=== PATIENT | female | born 2000 | race Hispanic/Latino ===

== ENCOUNTER 2024-07-25 13:10 | Emergency (ER) | payer BC, SELFPAY ==
[2024-07-25 15:40] LABS: Absolute Basophils 0.1 K/uL (0-0.5); Absolute Eosinophils 0.1 K/uL (0-0.5); Absolute Lymphocytes (CBC) 2.2 K/uL (0.7-4.9); Absolute Monocytes 0.6 K/uL (0.1-1.3); Absolute Neutrophil 7.6 K/uL (1.8-8.0); Basophils % 0.5 % (0-1.3); Eosinophils % 0.6 % (0-4.4); Hematocrit 39.4 % (36.0-45.0); Hemoglobin 13.2 g/dL (12.0-15.0); Lymphocytes % 21.2 % (15.3-44.8); MCH 28.5 pg (27.0-35.0); MCHC 33.6 g/dL (32.0-36.0); MCV 84.8 fL (80-100); MPV 8.8 fL (7.6-11.3); Monocytes % 6.1 % (3.3-12.3); Neutrophils % 71.6 % (41.7-73.7); Platelets 287 thou/uL (152-406); RBC Red Blood Cell Count 4.65 M/uL (3.86-4.86); Red Cell Distribution Width 12.9 % (12.1-15.2)
--- NOTE | 2024-07-25 15:48 | RAD REPORT ---
EXAMINATION: US FIRST TRIMESTER TRANSVAGINAL WITH DOPPLER CLINICAL INDICATION: with pelvic pain TECHNIQUE: Real-time obstetrical ultrasonography of the maternal pelvis and first trimester was performed transvaginally. Color and spectral Doppler evaluation of the ovaries was performed. COMPARISON: No prior exam. FINDINGS: The uterus measures 7 x 4 x 4 cm Endometrial stripe 1 cm. Gestational sac is. Right ovary normal in size and echotexture Left ovary normal in size and echotexture Right and left adnexa unremarkable No significant free fluid IMPRESSION: Non visualization of a gestational sac within the endometrium. This could be a viable intrauterine pr egnancy in which the gestational sac not seen secondary to the early gestation. Other considerations include an and even ectopic . This should be correlated clinically and with serial beta-hCG levels. Follow-up endovaginal sonogram in one week recommended for reevaluation
[2024-07-25 15:58] LABS: Anion Gap 9.6 mEq/L (5.0-15.0); Potassium 3.6 mEq/L (3.5-5.1)
[2024-07-25 16:08] LABS: Sqamous Epithelial 20-50 /HPF (None Seen); Urine Bacteria None Seen /HPF (<20); Urine Crystals Unidentified Few /HPF (None Seen); Urine Culture Reflex Order NOT NEEDED; Urine Micro Reflex YN NO BILL MICROSCOPIC; Urine Mucus Slight /HPF (None Seen); Urine RBC >50 /HPF (None Seen); Urine WBC >50 /HPF (<5); Urine WBC Clump Many /HPF (None Seen); Urine Yeast (Budding) Many /HPF (None Seen)
--- NOTE | 2024-07-25 16:23 | EDPHYS ---
Physician Documentation [facility] Name: Makenna Tan Age: 23 yrs Sex: Female : 2000 Arrival Date: 07/25/2024 Time: 13:10 Bed 19 Private MD: ED Physician Juanjo Fitch HPI: 07/25 14:56 This 23 yrs old Female presents to ER via Ambulatory with complaints of bo1 possible miscarriage. 14:56 Pt started vaginal bleeding (spotting) this AM - 7am suddenly. Now with cramps. Hx of bo1 with LMP in Mid Jun. Pos preg test late Jun. Now est to be 5-6 weeks. . Onset: The symptoms/episode began/occurred suddenly, this morning. Severity of symptoms: At their worst the symptoms were mild. No known cause or trauma. 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 - Infectious Disease History:: Denies. - Social history:: Smoking status: Patient denies any tobacco usage or history of. ROS: 16:17 Constitutional: Negative for fever, chills, and weight loss bo1 16:17 Constitutional: Negative for fever, 16:17 Cardiovascular: Negative for chest pain, 16:17 Respiratory: Negative for shortness of breath, 16:17 Abdomen/GI: Positive for Mild pelvic cramps, 16:17 : Positive for vaginal bleeding, Spotting, no clots etc, 16:17 Skin: Negative for rash, 16:17 All other systems are negative, Exam: 16:18 Constitutional: This is a well developed, well nourished patient who is awake, alert, bo1 and in no acute distress. 16:18 Constitutional: The patient appears in no acute distress, alert, awake, comfortable, 16:18 Abdomen/GI: Inspection: abdomen appears normal, Palpation: abdomen is soft and non-tender, 16:18 Back: CVA tenderness, is absent, 16:18 Skin: Warm and dry. Vital Signs: 14:14 BP 144 / 95; Pulse 89; Resp 16; Temp 98; Pulse Ox 100% ; Weight 81.65 kg; Height 5 ft. hb 7 in. ; Pain 2/10; 15:00 BP 129 / 82; Pulse 83; Resp 15; Pulse Ox 100% ; me1 16:00 BP 125 / 81; Pulse 82; Resp 14; Temp 98.4; Pulse Ox 100% ; me1 14:14 Body Mass Index 28.19 (81.65 kg, 170.18 cm) hb 14:14 Pain Scale: Adult hb MDM: 14:53 Medical Screening Exam initiated bo1 16:19 Differential Diagnosis Missed AB vs early preg vs ectopic. Data reviewed: vital signs, bo1 lab test result(s), radiologic studies, ultrasound. ED course: Pt agrees to return for a repeat beta HCG and ultrasound if indicated. 07/25 14:54 Order name: Abo/rh Typing; Complete Time: 16:09 bo1 07/25 14:54 Order name: Basic Metabolic Panel; Complete Time: 16:09 bo1 07/25 14:54 Order name: CBC with Diff; Complete Time: 15:53 bo1 07/25 14:54 Order name: Quantitative Hcg; Complete Time: 16:09 bo1 07/25 16:01 Order name: Urine Microscopic Only; Complete Time: 16:09 EDMS 07/25 14:54 Order name: US Transvaginal Ob; Complete Time: 15:53 bo1 07/25 14:54 Order name: IV Saline Lock; Complete Time: 16:22 bo1 07/25 14:54 Order name: Labs collected and sent; Complete Time: 16:22 bo1 07/25 14:54 Order name: NPO; Complete Time: 16:22 bo1 Administered Medications: No medications were administered Disposition Summary: 07/25/24 16:22 Discharge Ordered Notes: Location: Home bo1 Problem: new bo1 Symptoms: are unchanged bo1 Condition: Stable bo1 Diagnosis - Less than 8 weeks gestation of bo1 Followup: bo1 - With: Emergency Department - When: 5 - 6 days - Reason: Recheck today's complaints, Continuance of care Discharge Instructions: - Discharge Summary Sheet bo1 - Vaginal Bleeding During , First Trimester bo1 Forms: - Medication Reconciliation Form bo1 - Antibiotic Education bo1 - Prescription Opioid Use bo1 - Patient Portal Instructions bo1 - Leadership Thank You Letter bo1 Signatures: Dispatcher [employer] EDMS Ca Monaco, RN RN Oei, MD JAD Geiger bo1 Corrections: (The following items were deleted from the chart) 14: 14:55 Transvaginal Ob+US.RAD.BRZ ordered. EDMS EDMS 16:01 14:55 Urinalysis+U.LAB.BRZ ordered. EDMS EDMS
--- NOTE | 2024-07-25 16:23 | ER ---
Nurse's Notes [facility] Name: Makenna Tan Age: 23 yrs Sex: Female : 2000 Arrival Date: 07/25/2024 Time: 13:10 Bed 19 Private MD: Diagnosis: Less than 8 weeks gestation of Presentation: 07/25 14:14 Chief complaint: Vaginal bleeding and cramping that started today, had positive home hb test last week. LMP 06/17. Coronavirus screen: At this time, the client does not indicate any symptoms associated with coronavirus-19. Ebola Screen: No symptoms or risks identified at this time. Initial Sepsis Screen: Does the patient meet any 2 criteria? No. Patient's initial sepsis screen is negative. Does the patient have a suspected source of infection? No. Patient's initial sepsis screen is negative. Risk Assessment: Do you want to hurt yourself or someone else? Patient reports no desire to harm self or others. Onset of symptoms was July 25, 2024. 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 - Infectious Disease History:: Denies. - Social history:: Smoking status: Patient denies any tobacco usage or history of. Screenin:23 [facility] ED Fall Risk Assessment (Adult) History of falling in the last 3 months, me1 including since admission No falls in past 3 months (0 pts) Confusion or Disorientation No (0 pts) Intoxicated or Sedated No (0 pts) Impaired Gait No (0 pts) Mobility Assist Device Used No (0 pt) Altered Elimination No (0 pt) Score/Fall Risk Level 0 - 2 = Low Risk Maintained a safe environment, Provided non-skid footwear, Hourly rounding (assess needs \T\ fall precautionary measures) done. Abuse screen: Denies threats or abuse. Nutritional screening: No deficits noted. Tuberculosis screening: No symptoms or risk factors identified. Assessment: 14:23 General: Appears comfortable, well groomed, well developed, well nourished, Behavior is me1 calm, cooperative, appropriate for age, Reports Vaginal bleeding and cramping that started today, had positive home test last week. LMP 06/17. Pain: Complains of pain in suprapubic area Pain does not radiate. Pain currently is 3 out of 10 on a pain scale. Quality of pain is described as crampy, Pain began gradually, Is continuous. Neuro: Level of Consciousness is awake, alert, obeys commands, Oriented to person, place, time, situation, Appropriate for age. Cardiovascular: Patient's skin is warm and dry. Respiratory: Airway is patent Trachea midline Respiratory effort is even, unlabored, Respiratory pattern is regular, symmetrical. GI: No signs and/or symptoms were reported involving the gastrointestinal system. : Reports vaginal bleeding that is moderate flow. EENT: No signs and/or symptoms were reported regarding the EENT system. Derm: Skin is intact, is healthy with good turgor, Skin is pink, warm \T\ dry. Musculoskeletal: No signs and/or symptoms reported regarding the musculoskeletal system. Vital Signs: 14:14 BP 144 / 95; Pulse 89; Resp 16; Temp 98; Pulse Ox 100% ; Weight 81.65 kg; Height 5 ft. hb 7 in. ; Pain 2/10; 15:00 BP 129 / 82; Pulse 83; Resp 15; Pulse Ox 100% ; me1 16:00 BP 125 / 81; Pulse 82; Resp 14; Temp 98.4; Pulse Ox 100% ; me1 14:14 Body Mass Index 28.19 (81.65 kg, 170.18 cm) hb 14:14 Pain Scale: Adult hb ED Course: 13:12 Patient arrived in ED. al6 13:14 Juanjo Fitch MD is Attending Physician. bo1 14:15 Triage completed. hb 14:15 Arm band placed on. hb 14:22 Priya Fulton, EMIGDIO is Primary Nurse. me1 14:23 Patient has correct armband on for positive identification. Bed in low position. Call me1 light in reach. Side rails up X2. Provided Education on: POC. Verbalized understanding.. Client placed on continuous cardiac and pulse oximetry monitoring. NIBP monitoring applied. Pulse ox on. NIBP on. 14:23 No provider procedures requiring assistance completed. me1 15:14 US Transvaginal Ob In Process Unspecified. EDMS 16:40 IV discontinued, intact, bleeding controlled, No redness/swelling at site. Pressure me1 dressing applied. Administered Medications: No medications were administered Medication: 14:23 VIS not applicable for this client. me1 Outcome: 16:22 Discharge ordered by . bo1 16:40 Discharged to home ambulatory, with significant other, me1 16:40 Condition: stable 16:40 Discharge instructions given to patient, significant other, Instructed on discharge instructions, follow up and referral plans. Demonstrated understanding of instructions, follow-up care, 16:41 Patient left the ED. me1 Signatures: Dispatcher [employer] EDCa Butcher RN RN Priya Fulton RN RN me1 Juanjo Fitch MD MD bo1 Fatemeh Vergara6 Corrections: (The following items were deleted from the chart) :23 14:14 Chief complaint: Vaginal bleeding and cramping that started today, had positive me1 home test last week. LMP 06/17. hb
[2024-07-25 16:45] VITALS: O2SAT 100
[2024-07-25 16:48] VITALS: BP 125/81; TEMP 98.4
== END 2024-07-25 16:41 | disposition home or self-care (01) ==
LOC: ER 13:10
DX: O20.9 Hemorrhage in early pregnancy, unspecified (principal); Z3A.01 Less than 8 weeks gestation of pregnancy
CPT/HCPCS: 36415; 76817; 80048; 81015; 84702; 85025; 86900; 86901; 99283

== ENCOUNTER 2025-03-16 14:43 | Emergency (ER) | payer OTHER ==
[2025-03-16 15:19] LABS: Absolute Lymphocytes (CBC) 2.0 K/uL (0.7-4.9); Hematocrit 42.0 % (36.0-45.0); Hemoglobin 14.4 g/dL (12.0-15.0); MCH 28.9 pg (27.0-35.0); MCHC 34.3 g/dL (32.0-36.0); MCV 84.2 fL (80-100); MPV 8.9 fL (7.6-11.3); Nucleated RBC Absolute Count 0.0 (0-0); Nucleated Red Blood Cells % 0.1 % (0-0); RBC Red Blood Cell Count 4.99 M/uL (3.86-4.86); White Blood Count 8.60 thou/uL (4.3-10.9)
[2025-03-16 15:34] LABS: ALT/SGPT 18 U/L (13-56); Albumin 4.5 g/dL (3.4-5.0); Albumin/Globulin Ratio 1.2 (1.1-1.8); Alkaline Phosphatase 73 U/L (45-117); Anion Gap 8.5 mEq/L (5.0-15.0); BUN Blood Urea Nitrogen 6 mg/dL (7-18); Bilirubin Indirect, Calculated 0.4 mg/dL (0.2-0.8); Globulin 3.7 g/dL (2.3-3.5); Glucose Level 97 mg/dL (74-106); Magnesium 2.3 mg/dL (1.6-2.4); Potassium 3.5 mEq/L (3.5-5.1); Troponin High Sensitivity 3.5 pg/mL (<58.9)
[2025-03-16 15:36] LABS: AST/SGOT < 10 U/L (15-37)
--- NOTE | 2025-03-16 16:07 | RAD REPORT ---
EXAMINATION: ONE VIEW CHEST XR CLINICAL INDICATION: CHEST PAIN TECHNIQUE: Frontal chest projection is submitted. Examination is limited by patient positioning and t echnique. COMPARISON: No prior exam. FINDINGS: The lungs are well inflated and clear. The heart is normal in size. No displaced fractures identified . IMPRESSION: No acute intrathoracic abnormalities.
--- NOTE | 2025-03-16 16:13 | EDPHYS ---
Physician Documentation [facility] Name: Frida Mensah Age: 24 yrs Sex: Female : 2000 Arrival Date: 03/16/2025 Time: 14:43 Bed 17 Private MD: ED Physician Reza Fraser HPI: 03/16 15:49 This 24 yrs old Female presents to ER via Ambulatory with complaints of ms3 Abnormal EKG. 15:49 24-year-old female with no past medical history presents to the emergency department ms3 for chest tightness and nausea that been ongoing for 1 week. Patient was at urgent care prior to arrival in the emergency department where she was given a GI cocktail and began to feel better. Patient was informed her EKG was abnormal showing a right bundle branch block. Patient states her pressure and the chest is rated 4/10. Patient states in the beginning of the week it was an 8/10 and has improved. Patient notes the pain is typically worse in the morning. Patient denies shortness of breath, lightheadedness, dizziness, palpitations.. 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 - Infectious Disease History:: Denies. - Social history:: Smoking status: Reported history of juuling and/or vaping. ROS: 15:49 Constitutional: Negative for fever, and chills. ms3 15:49 Respiratory: Negative for shortness of breath, cough, wheezing, and pleuritic chest pain, Abdomen/GI: Negative for abdominal pain, nausea, vomiting, diarrhea, and constipation, MS/Extremity: Negative for injury and deformity, Skin: Negative for injury, rash, and discoloration, 15:49 Cardiovascular: Positive for chest pain, Exam: 15:49 Constitutional: This is a well developed, well nourished patient who is awake, alert, ms3 and in no acute distress. Head/Face: Normocephalic, atraumatic. Cardiovascular: Regular rate and rhythm with a normal S1 and S2. No gallops, murmurs, or rubs. Normal PMI, no JVD. No pulse deficits. Respiratory: Lungs have equal breath sounds bilaterally, clear to auscultation and percussion. No rales, rhonchi or wheezes noted. No increased work of breathing, no retractions or nasal flaring. Abdomen/GI: Soft, non-tender, with normal bowel sounds. No distension or tympany. No guarding or rebound. No evidence of tenderness throughout. Skin: Warm, dry with normal turgor. Normal color with no rashes, no lesions, and no evidence of cellulitis. 15:49 ECG was reviewed by the Attending Physician. Vital Signs: 14:50 BP 101 / 86; Pulse 89; Resp 18 S; Temp 98(TE); Pulse Ox 100% on R/A; Pain 4/10; aa5 15:47 BP 119 / 84; Pulse 81; Resp 20; Pulse Ox 100% on R/A; kj2 16:28 BP 126 / 83; Pulse 80; Resp 18; Temp 98.2; Pulse Ox 100% on R/A; kj2 14:50 Pain Scale: Adult aa5 MDM: 14:49 Medical Screening Exam initiated ms3 15:49 Differential diagnosis: abnormal EKG, acute myocardial infarction, acute pericarditis, ms3 anxiety, coronary artery disease chest wall pain. HEART Score: History: Slightly Suspicious (0), ECG: Normal (0), Age: < or = 45 years (0), Risk Factors: No Risk Factors Known (0), Troponin: < or = 1 x Normal Limit (0), Total Score = 0. Scoring Tools PERC Rule for PE Age > /= 50 No (0) HR > /= 100 No (0) O2 Sat Room Air < 95% No (0) Unilateral leg swelling No (0) Hemoptysis No (0) Recent surgery or trauma </= 4 weeks ago, requiring treatment with General Anesthesia No (0) Prior PE or DVT No (0) Hormone use No (0). 19:37 Data reviewed: vital signs, nurses notes, lab test result(s), EKG, radiologic studies, ms3 and as a result, I will discharge patient. Independent interpretation of the following test(s) in the Emergency Department EKG: See my EKG interpretation above X-Ray: My interpretation is Chest x-ray images reviewed by me do not reveal pneumonia or pneumothorax. Counseling: I had a detailed discussion with the patient and/or guardian regarding the historical points, exam findings, and any diagnostic results supporting the discharge/admit diagnosis, lab results, radiology results, the need for outpatient follow up, to return to the emergency department if symptoms worsen or persist or if there are any questions or concerns that arise at home. Special discussion: I discussed with the patient/guardian in detail that at this point there is no indication for admission to the hospital. It is understood, however, that if the symptoms persist or worsen the patient needs to return immediately for re-evaluation. ED course: Discussed EKG, labs, chest x-ray findings with patient. Patient to follow-up with primary care physician in 2 to 3 days. Patient understands and agrees with plan. All questions were answered. Return precautions discussed include worsening symptoms, or any other concerns. On reevaluation patient is alert and oriented x 4, no apparent distress, nontoxic-appearing, speaking full sentences. 03/16 14:55 Order name: Basic Metabolic Panel; Complete Time: 15:41 ms3 03/16 14:55 Order name: CBC with Diff; Complete Time: 15:34 ms3 03/16 14:55 Order name: LFT's; Complete Time: 15:41 ms3 03/16 14:55 Order name: Magnesium; Complete Time: 15:41 ms3 03/16 14:55 Order name: Troponin HS; Complete Time: 15:41 ms3 03/16 14:55 Order name: XRAY Chest (1 view); Complete Time: 16:09 ms3 03/16 14:55 Order name: EKG; Complete Time: 14:56 ms3 03/16 14:55 Order name: Cardiac monitoring; Complete Time: 15:50 ms3 03/16 14:55 Order name: EKG - Nurse/Tech; Complete Time: 15:50 ms3 03/16 14:55 Order name: IV Saline Lock; Complete Time: 15:50 ms3 03/16 14:55 Order name: Labs collected and sent; Complete Time: 15:50 ms3 03/16 14:55 Order name: O2 Per Protocol; Complete Time: 15:50 ms3 03/16 14:55 Order name: O2 Sat Monitoring; Complete Time: 15:50 ms3 EC:49 Rate is 75 beats/min. Rhythm is regular. QRS [place] is Normal. [place] interval is normal. QRS ms3 interval is prolonged. Clinical impression: Normal ECG and with RBBB. Interpreted by me. Reviewed by me. Administered Medications: No medications were administered Disposition Summary: 03/16/25 16:12 Discharge Ordered Notes: Location: Home ms3 Condition: Stable ms3 Diagnosis - Chest pain, unspecified ms3 - Unspecified right bundle-branch block ms3 Followup: ms3 - With: Jose Maldonado DO - When: 2 - 3 days - Reason: Recheck today's complaints Discharge Instructions: - Discharge Summary Sheet ms3 - Nonspecific Chest Pain, Adult ms3 - Right Bundle Branch Block ms3 Forms: - Medication Reconciliation Form ms3 - Antibiotic Education ms3 - Prescription Opioid Use ms3 - Patient Portal Instructions ms3 - Leadership Thank You Letter ms3 Signatures: Dispatcher [employer] Erika Schwartz RN RN aa5 Reza Fraser DO DO ms3
--- NOTE | 2025-03-16 16:13 | ER ---
Nurse's Notes [facility] Name: Frida Mensah Age: 24 yrs Sex: Female : 2000 Arrival Date: 03/16/2025 Time: 14:43 Bed 17 Private MD: Diagnosis: Chest pain, unspecified;Unspecified right bundle-branch block Presentation: 03/16 14:50 Chief complaint: Patient states: chest tightness and nausea x 1 week ago. Pt reports aa5 was seen at urgent care and sent here for abnormal EKG, showing right bundle branch block. Pt reports she was given GI cocktail at urgent care and symptoms have improved. Coronavirus screen: At this time, the client does not indicate any symptoms associated with coronavirus-19. Ebola Screen: Patient denies travel to an Ebola-affected area in the 21 days before illness onset. Initial Sepsis Screen: Does the patient meet any 2 criteria? No. Patient's initial sepsis screen is negative. Does the patient have a suspected source of infection? No. Patient's initial sepsis screen is negative. Risk Assessment: Do you want to hurt yourself or someone else? Patient reports no desire to harm self or others. Onset of symptoms was March 2025. 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 - Infectious Disease History:: Denies. - Social history:: Smoking status: Reported history of juuling and/or vaping. Screenin:00 [facility] ED Fall Risk Assessment (Adult) History of falling in the last 3 months, kj2 including since admission No falls in past 3 months (0 pts) Confusion or Disorientation No (0 pts) Intoxicated or Sedated No (0 pts) Impaired Gait No (0 pts) Mobility Assist Device Used No (0 pt) Altered Elimination No (0 pt) Score/Fall Risk Level 0 - 2 = Low Risk Maintained a safe environment, Hourly rounding (assess needs \T\ fall precautionary measures) done. Abuse screen: Denies threats or abuse. Denies injuries from another. Nutritional screening: No deficits noted. Tuberculosis screening: No symptoms or risk factors identified. Assessment: 15:00 General: Appears in no apparent distress. Behavior is cooperative. Pain: Denies pain. kj2 Neuro: Level of Consciousness is awake, alert, obeys commands, Oriented to person, place, time, situation. Cardiovascular: Patient's skin is warm and dry. Respiratory: Airway is patent Respiratory effort is even, unlabored. GI: No signs and/or symptoms were reported involving the gastrointestinal system. : No signs and/or symptoms were reported regarding the genitourinary system. 15:47 Reassessment: Patient appears in no apparent distress at this time. Patient and/or kj2 family updated on plan of care and expected duration. Pain level reassessed. Patient is alert, oriented x 3, equal unlabored respirations, skin warm/dry/pink. Vital Signs: 14:50 BP 101 / 86; Pulse 89; Resp 18 S; Temp 98(TE); Pulse Ox 100% on R/A; Pain 4/10; aa5 15:47 BP 119 / 84; Pulse 81; Resp 20; Pulse Ox 100% on R/A; kj2 16:28 BP 126 / 83; Pulse 80; Resp 18; Temp 98.2; Pulse Ox 100% on R/A; kj2 14:50 Pain Scale: Adult aa5 ED Course: 14:45 Patient arrived in ED. mr 14:46 Sunny Zavala PA is PHCP. cp 14:46 Reza Fraser DO is Attending Physician. cp 14:50 Arm band placed on. aa5 14:51 Triage completed. aa5 15:00 Patient has correct armband on for positive identification. Bed in low position. Call kj2 light in reach. Adult w/ patient. Provided Education on: call light. 15:07 Inserted saline lock: 20 gauge in right antecubital area, using aseptic technique. sa1 Blood collected. Flushed with 10 mL NS. 15:07 Initial lab(s) drawn, by me, sent to lab. sa1 15:15 Koki Herron, RN is Primary Nurse. kj2 15:56 XRAY Chest (1 view) In Process Unspecified. EDMS 16:11 Jose Maldonado DO is Referral Physician. ms3 16:24 No provider procedures requiring assistance completed. IV discontinued, intact, kj2 bleeding controlled, No redness/swelling at site. Pressure dressing applied. Administered Medications: No medications were administered Medication: 15:49 VIS not applicable for this client. kj2 Outcome: 16:12 Discharge ordered by . ms3 16:25 Discharged to home ambulatory, with friend, kj2 16:25 Condition: stable 16:25 Discharge instructions given to patient, Instructed on discharge instructions, follow up and referral plans. Demonstrated understanding of instructions, follow-up care, 16:38 Patient left the ED. kj2 Signatures: Dispatcher [employer] EDWI Kindra Abdi, Reg Reg mr FatimaErika, RN RN aa5 Sunny Zavala PA PA Reza Alvarez, DO ms3 Sultan Dorota sa1 Koki Herron, RN RN kj2 Corrections: (The following items were deleted from the chart) 14:52 14:50 Pain 4/10, Adult; aa5 aa5
[2025-03-16 18:35] VITALS: O2SAT 100
[2025-03-16 18:47] VITALS: BP 126/83; TEMP 98.2
== END 2025-03-16 16:38 | disposition home or self-care (01) ==
LOC: ER 14:43
DX: I45.10 Unspecified right bundle-branch block (principal)
CPT/HCPCS: 36415; 71045; 80048; 80076; 83735; 84484; 85025; 93005; 99284

== ENCOUNTER 2025-03-18 22:00 | Emergency (ER) | payer OTHER ==
[2025-03-18 22:59] LABS: Absolute Lymphocytes (CBC) 3.0 K/uL (0.7-4.9); Hematocrit 39.2 % (36.0-45.0); Hemoglobin 13.5 g/dL (12.0-15.0); MCH 28.6 pg (27.0-35.0); MCHC 34.4 g/dL (32.0-36.0); MCV 83.2 fL (80-100); MPV 9.1 fL (7.6-11.3); Nucleated RBC Absolute Count 0.0 (0-0); Nucleated Red Blood Cells % 0.0 % (0-0); RBC Red Blood Cell Count 4.71 M/uL (3.86-4.86); White Blood Count 10.60 thou/uL (4.3-10.9)
[2025-03-18 23:25] LABS: Anion Gap 8.6 mEq/L (5.0-15.0); BUN Blood Urea Nitrogen 7.0 mg/dL (7-18); Glucose Level 107.0 mg/dL (74-106); Magnesium 2.3 mg/dL (1.6-2.4); Potassium 3.6 mEq/L (3.5-5.1)
--- NOTE | 2025-03-18 23:45 | ER ---
Nurse's Notes [facility] Name: Frida Mensah Age: 24 yrs Sex: Female : 2000 Arrival Date: 03/18/2025 Time: 22:00 Bed 15 Private MD: Diagnosis: Paresthesia of skin Presentation: 03/18 22:19 Chief complaint: Patient states: she has tingling in right arm and back of head. sts [facility] tingling began in arm around 3pm and in head "just a little bit ago". sts she was seen 2 days ago for same symptoms. Coronavirus screen: Vaccine status: Patient reports receiving the 2nd dose of the covid vaccine. At this time, the client does not indicate any symptoms associated with coronavirus-19. Ebola Screen: Patient negative for fever greater than or equal to 101.5 degrees Fahrenheit, and additional compatible Ebola Virus Disease symptoms Patient denies exposure to infectious person. Patient denies travel to an Ebola-affected area in the 21 days before illness onset. No symptoms or risks identified at this time. Initial Sepsis Screen: Does the patient meet any 2 criteria? No. Patient's initial sepsis screen is negative. Does the patient have a suspected source of infection? No. Patient's initial sepsis screen is negative. Risk Assessment: Do you want to hurt yourself or someone else? Patient reports no desire to harm self or others. Onset of symptoms was March 18, 2025 at 15:00. 22:19 Method Of Arrival: Ambulatory [facility] 22:19 Method Of Arrival: Ambulatory [facility] 22:19 Acuity: ARTIE 4 [facility] Triage Assessment: 22:24 General: Appears in no apparent distress. well groomed, well developed, well nourished, [facility] Behavior is calm, cooperative. Pain: Denies pain. EENT: No deficits noted. No signs and/or symptoms were reported regarding the EENT system. Neuro: Reports "tingling" to right arm and head, right shoulder. Cardiovascular: No deficits noted. Respiratory: No deficits noted. GI: No deficits noted. No signs and/or symptoms were reported involving the gastrointestinal system. : No deficits noted. No signs and/or symptoms were reported regarding the genitourinary system. Derm: No deficits noted. No signs and/or symptoms reported regarding the dermatologic system. Musculoskeletal: No deficits noted. No signs and/or symptoms reported regarding the musculoskeletal system. ETL DATA ARCHITECT: 22:26 LMP 03/07/2025, unknown [facility] Historical: - Allergies: 22:24 No Known Allergies; [facility] - Home Meds: 22:24 None [Active]; [facility] - Immunization history:: Adult Immunizations up to date. - Infectious Disease History:: Denies. - Social history:: Smoking status: Patient denies any tobacco usage or history of. Screenin:25 [facility] ED Fall Risk Assessment (Adult) History of falling in the last 3 months, [facility] including since admission No falls in past 3 months (0 pts) Confusion or Disorientation No (0 pts) Intoxicated or Sedated No (0 pts) Impaired Gait No (0 pts) Mobility Assist Device Used No (0 pt) Altered Elimination No (0 pt) Score/Fall Risk Level 0 - 2 = Low Risk. Abuse screen: Denies threats or abuse. Denies injuries from another. Nutritional screening: No deficits noted. Tuberculosis screening: No symptoms or risk factors identified. Assessment: 22:27 Reassessment: see triage assessment. [facility] Vital Signs: 22:19 BP 113 / 75; Pulse 84; Resp 17; Temp 97.9; Pulse Ox 100% on R/A; Weight 74.84 kg; [facility] Height 5 ft. 7 in. ; Pain 0/10; 23:00 BP 100 / 67; Pulse 68; Resp 17; Pulse Ox 100% on R/A; [facility] 03/19 00:19 BP 110 / 67; Pulse 71; Resp 17; Pulse Ox 99% ; [facility] 03/18 22:19 Body Mass Index 25.84 (74.84 kg, 170.18 cm) [facility] 03/18 22:19 Pain Scale: Adult [facility] ED Course: 03/18 22:02 Patient arrived in ED. im 22:04 Reza Fraser DO is Attending Physician. ms3 22:12 Ca Garcia, EMIGDIO is Primary Nurse. [facility] 22:24 Triage completed. [facility] 22:25 Arm band placed on left wrist. [facility] 22:26 Patient has correct armband on for positive identification. Bed in low position. Call [facility] light in reach. Side rails up X 1. Provided Education on: plan of care. 22:26 No provider procedures requiring assistance completed. [facility] 22:50 Inserted saline lock: 20 gauge in left antecubital area, using aseptic technique. [facility] 23:45 Jose Maldonado DO is Referral Physician. ms3 Administered Medications: No medications were administered Medication: 22:26 VIS not applicable for this client. [facility] Outcome: 23:45 Discharge ordered by . ms3 03/19 00:19 Discharged to home ambulatory, with family, [facility] Condition: stable Discharge instructions given to patient, Instructed on discharge instructions, follow up and referral plans. Demonstrated understanding of instructions, follow-up care, 00:20 Patient left the ED. [facility] Signatures: Reza Fraser DO DO ms3 Iirna Ordonez Heather, RN RN [facility]
--- NOTE | 2025-03-18 23:45 | EDPHYS ---
Physician Documentation [facility] Name: Frida Mensah Age: 24 yrs Sex: Female : 2000 Arrival Date: 03/18/2025 Time: 22:00 Bed 15 Private MD: ED Physician Reza Fraser HPI: 03/19 00:10 This 24 yrs old Female presents to ER via Ambulatory with complaints of ms3 Numbness Of Arm, head tingling. 00:10 24-year-old female with no past medical history presents to the emergency department ms3 for right arm tingling and right shoulder tingling that began at 2:40 PM. Patient denies pain, weakness, numbness. Patient endorses nausea. She denies vomiting, chest pain, shortness of breath, fevers, chills.. REHAB DIRECTOR: 03/18 22:26 LMP 03/07/2025, unknown hm5 Historical: - Allergies: 22:24 No Known Allergies; hm5 - Home Meds: 22:24 None [Active]; hm5 - Immunization history:: Adult Immunizations up to date. - Infectious Disease History:: Denies. - Social history:: Smoking status: Patient denies any tobacco usage or history of. ROS: 03/19 00:10 Constitutional: Negative for fever, and chills. Cardiovascular: Negative for chest ms3 pain, and palpitations. Respiratory: Negative for shortness of breath, cough, wheezing, and pleuritic chest pain, Abdomen/GI: Negative for abdominal pain, nausea, vomiting, diarrhea, and constipation, MS/Extremity: Negative for injury and deformity, Neuro: Positive for Right arm paresthesia, Exam: 00:10 Constitutional: This is a well developed, well nourished patient who is awake, alert, ms3 and in no acute distress. Cardiovascular: Regular rate and rhythm with a normal S1 and S2. No gallops, murmurs, or rubs. Normal PMI, no JVD. No pulse deficits. Respiratory: Lungs have equal breath sounds bilaterally, clear to auscultation and percussion. No rales, rhonchi or wheezes noted. No increased work of breathing, no retractions or nasal flaring. Abdomen/GI: Soft, non-tender, with normal bowel sounds. No distension or tympany. No guarding or rebound. No evidence of tenderness throughout. Skin: Warm, dry with normal turgor. Normal color with no rashes, no lesions, and no evidence of cellulitis. MS/ Extremity: Pulses equal, no cyanosis. Neurovascular intact. Full, normal range of motion. Neuro: Awake and alert, GCS 15, oriented to person, place, time, and situation. Cranial nerves II-XII grossly intact. Motor strength 5/5 in all extremities. Sensory grossly intact. Cerebellar exam normal. Normal gait. Vital Signs: 03/18 22:19 BP 113 / 75; Pulse 84; Resp 17; Temp 97.9; Pulse Ox 100% on R/A; Weight 74.84 kg; 5 Height 5 ft. 7 in. ; Pain 0/10; 23:00 BP 100 / 67; Pulse 68; Resp 17; Pulse Ox 100% on R/A; [facility] 03/19 00:19 BP 110 / 67; Pulse 71; Resp 17; Pulse Ox 99% ; [facility] 03/18 22:19 Body Mass Index 25.84 (74.84 kg, 170.18 cm) [facility] 03/18 22:19 Pain Scale: Adult [facility] MDM: 03/18 22:16 Medical Screening Exam initiated ms3 03/19 00:12 Differential diagnosis: Electrolyte abnormality versus disc herniation versus ms3 peripheral neuropathy. Data reviewed: vital signs, nurses notes, lab test result(s), and as a result, I will discharge patient. Counseling: I had a detailed discussion with the patient and/or guardian regarding the historical points, exam findings, and any diagnostic results supporting the discharge/admit diagnosis, lab results, the need for outpatient follow up, to return to the emergency department if symptoms worsen or persist or if there are any questions or concerns that arise at home. Special discussion: I discussed with the patient/guardian in detail that at this point there is no indication for admission to the hospital. It is understood, however, that if the symptoms persist or worsen the patient needs to return immediately for re-evaluation. ED course: Patient with 5/5 strength in bilateral upper and lower extremities, no numbness noted on exam, alert and orient x 4, no apparent distress, nontoxic-appearing, speaking full sentences, ambulatory in the emergency department. Patient to follow-up with primary care physician in 2 to 3 days. All questions were answered. Return precautions discussed include worsening symptoms, or any other concerns.. 03/18 22:44 Order name: CBC with Diff; Complete Time: 23:40 ms3 03/18 22:44 Order name: BMP; Complete Time: 23:40 ms3 03/18 22:44 Order name: Magnesium; Complete Time: 23:40 ms3 03/18 22:44 Order name: Test, Serum; Complete Time: 23:40 ms3 Administered Medications: No medications were administered Disposition Summary: 03/18/25 23:45 Discharge Ordered Notes: Location: Home ms3 Condition: Stable ms3 Diagnosis - Paresthesia of skin ms3 Followup: ms3 - With: Jose Maldonado DO - When: 2 - 3 days - Reason: Recheck today's complaints Discharge Instructions: - Discharge Summary Sheet ms3 - Paresthesia ms3 - Peripheral Neuropathy ms3 Forms: - Medication Reconciliation Form ms3 - Antibiotic Education ms3 - Prescription Opioid Use ms3 - Patient Portal Instructions ms3 - Leadership Thank You Letter ms3 Signatures: Dispatcher [employer] Reza Tillman DO DO ms3 Ca Garcia, RN RN hm5
[2025-03-19 08:50] VITALS: TEMP 97.9
[2025-03-19 08:53] VITALS: BP 110/67; O2SAT 99
== END 2025-03-19 00:20 | disposition home or self-care (01) ==
LOC: ER 22:00
DX: R20.2 Paresthesia of skin (principal); R11.0 Nausea
CPT/HCPCS: 36415; 80048; 83735; 84703; 85025; 99283

== ENCOUNTER 2025-03-27 09:12 | Emergency (ER) | payer OTHER ==
[2025-03-27] MEDS ORDERED: KETOROLAC 30 MG/ML INJ ONE (09:26)
[2025-03-27] MEDS ORDERED: FAMOTIDINE 20 MG/2 ML VIAL IV ONE (09:26)
[2025-03-27] MEDS ORDERED: NA CHLORIDE 0.9% 1,000 ML ONE (09:26)
[2025-03-27 10:05] LABS: Absolute Lymphocytes (CBC) 1.1 K/uL (0.7-4.9); Hematocrit 40.0 % (36.0-45.0); Hemoglobin 14.0 g/dL (12.0-15.0); MCH 29.2 pg (27.0-35.0); MCHC 35.1 g/dL (32.0-36.0); MCV 83.2 fL (80-100); MPV 9.7 fL (7.6-11.3); Nucleated RBC Absolute Count 0.0 (0-0); Nucleated Red Blood Cells % 0.0 % (0-0); RBC Red Blood Cell Count 4.81 M/uL (3.86-4.86); White Blood Count 7.80 thou/uL (4.3-10.9)
[2025-03-27 10:12] LABS: PT Prothrombin Time 14.3 SECONDS (10-13.0); Protime INR 1.27
--- NOTE | 2025-03-27 10:24 | RAD REPORT ---
Procedure: Chest Single View HISTORY: Chest pain COMPARISON: March 16, 2025 FINDINGS: The lungs appear clear of acute infiltrate. No significant pleural effusion noted. The heart is normal size. IMPRESSION: No acute abnormality is displayed.
[2025-03-27 11:11] LABS: BUN Blood Urea Nitrogen 8 mg/dL (7-18); Glucose Level 126 mg/dL (74-106); Potassium 3.6 mEq/L (3.5-5.1)
[2025-03-27 11:12] LABS: ALT/SGPT 19 U/L (13-56); Alkaline Phosphatase 69 U/L (45-117); Bilirubin Indirect, Calculated 0.7 mg/dL (0.2-0.8)
[2025-03-27 11:13] LABS: Albumin 4.5 g/dL (3.4-5.0); Albumin/Globulin Ratio 1.4 (1.1-1.8); Globulin 3.3 g/dL (2.3-3.5); Magnesium 2.3; Troponin High Sensitivity 3.2 (<58.9)
[2025-03-27 11:14] LABS: Anion Gap 11.6 mEq/L (5.0-15.0)
[2025-03-27 11:15] LABS: AST/SGOT < 10 U/L (15-37)
--- NOTE | 2025-03-27 11:19 | EDPHYS ---
Physician Documentation [facility] Name: Frida Mensah Age: 24 yrs Sex: Female : 2000 Arrival Date: 03/27/2025 Time: 09:12 Bed 7 Private MD: ED Physician Reza Fraser HPI: 03/27 09:42 This 24 yrs old Female presents to ER via Ambulatory with complaints of Chest sb4 Pressure. 09:42 Patient reports of burning sensation in the left side of her chest associated with an sb4 elevated heart rate over the past day. States that she has a smart ring and it has been tracking it. Her heart rate was elevated while sleeping. States that she did smoke THC yesterday and that could be a cause, but wanted to make sure there was nothing else going on. Denies any shortness of breath. Denies any prior occurrences of this. Historical: - Allergies: 09:22 No Known Allergies; ll1 - PMHx: 09:22 None; ll1 - PSHx: 09:22 None; ll1 - Immunization history:: Adult Immunizations up to date. - Infectious Disease History:: Denies. - Social history:: Smoking status: Patient denies any tobacco usage or history of. ROS: 09:42 Constitutional: Negative for fever, chills, and weight loss, sb4 09:42 Cardiovascular: Positive for chest pain, palpitations, 09:42 All other systems are negative, Exam: 09:42 Constitutional: This is a well developed, well nourished patient who is awake, alert, sb4 and in no acute distress. Head/Face: Normocephalic, atraumatic. Eyes: Extra-ocular motions intact. Periorbital areas with no swelling, redness, or edema. ENT: Mucous membranes moist. Respiratory: No increased work of breathing, no retractions or nasal flaring. Abdomen/GI: Soft, non-tender, no distension. Skin: Warm, dry with normal turgor. Normal color with no rashes, no lesions, and no evidence of cellulitis. 09:42 Cardiovascular: Rate: tachycardic, Rhythm: regular, Vital Signs: 09:22 BP 123 / 89; Pulse 91; Resp 17; Temp 97.3; Pulse Ox 99% ; Weight 73.03 kg; Height 5 ft. ll1 6 in. ; Pain 6/10; 10:08 BP 110 / 78; Pulse 95; Resp 15; Pulse Ox 100% on R/A; hb 09:22 Body Mass Index 25.99 (73.03 kg, 167.64 cm) ll1 09:22 Pain Scale: Adult ll1 MDM: 09:15 Medical Screening Exam initiated sb4 11:18 Differential diagnosis: anxiety, drug reaction, electrolyte abnormality, GERD, sb4 arrhythmia. Data reviewed: vital signs, nurses notes, lab test result(s), EKG, radiologic studies, and as a result, I will discharge patient. Counseling: I had a detailed discussion with the patient and/or guardian regarding the historical points, exam findings, and any diagnostic results supporting the discharge/admit diagnosis, lab results, radiology results, the need for outpatient follow up, a supreme court judge, to return to the emergency department if symptoms worsen or persist or if there are any questions or concerns that arise at home. Special discussion: Based on the patient's history, exam, and Dx evaluation, there is no indication for emergent intervention or inpatient Tx. It is understood by the patient/guardian that if the Sx's persist or worsen they need to return immediately for re-evaluation. 03/27 09:20 Order name: Basic Metabolic Panel; Complete Time: 18:50 sb4 03/27 09:20 Order name: CBC with Diff; Complete Time: 10:07 sb03/27 09:20 Order name: LFT's; Complete Time: 18:50 sb4 03/27 09:20 Order name: Magnesium; Complete Time: 18:50 sb4 03/27 09:20 Order name: NT PRO-BNP; Complete Time: 18:50 sb03/27 09:20 Order name: PT-INR; Complete Time: 10:16 sb4 03/27 09:20 Order name: Troponin HS; Complete Time: 18:50 sb4 03/27 09:20 Order name: Test, Serum; Complete Time: 10:41 sb4 03/27 09:20 Order name: XRAY Chest (1 view); Complete Time: 10:25 sb4 03/27 09:20 Order name: Cardiac monitoring; Complete Time: 09:31 sb4 03/27 09:20 Order name: EKG - Nurse/Tech; Complete Time: :31 sb4 03/27 09:20 Order name: IV Saline Lock; Complete Time: :33 sb4 03/27 09:20 Order name: Labs collected and sent; Complete Time: sb4 03/27 09:20 Order name: O2 Per Protocol; Complete Time: sb4 03/27 09:20 Order name: O2 Sat Monitoring; Complete Time: sb4 EC:43 Rate is 95 beats/min. Rhythm is regular, Normal Sinus Rhythm. PA interval is normal at sb4 152 msec. QRS interval is normal at 100 msec. QT interval is normal at 362 msec. No Q waves. T waves are Normal. No ST changes noted. Clinical impression: Normal ECG. Interpreted by me. Reviewed by me. Administered Medications: : Drug: NS 0.9% IV 1000 ml IV at 1000 ml once; to be given as a bolus over 60 minutes jp5 Route: IV; Rate: 1000 ml; Site: right antecubital; :34 Drug: Famotidine IVP 20 mg IVP once; dilute with 10 mL 0.9% NaCl; give over 2 minutes jp5 Route: IVP; Site: right antecubital; :34 Drug: Ketorolac IVP 15 mg IVP once Route: IVP; Site: right antecubital; jp5 Disposition: 16:15 I was immediately available on-site in the Emergency Department for consultation in the ms3 care of the patient. Disposition Summary: 03/27/25 11:19 Discharge Ordered Notes: Location: Home sb4 Problem: new sb4 Symptoms: have improved sb4 Condition: Stable sb4 Diagnosis - Chest pain, unspecified sb4 - Palpitations sb4 Followup: sb4 - With: Emergency Department - When: As needed - Reason: Trouble breathing, Worsening of condition Followup: sb4 - With: Hubert Anthony MD - When: As needed - Reason: Further diagnostic work-up Discharge Instructions: - Discharge Summary Sheet sb4 - Food Choices for Gastroesophageal Reflux Disease, Adult sb4 - Palpitations sb4 - Nonspecific Chest Pain, Adult, [id number] sb4 Forms: - Patient Portal Instructions sb4 - Leadership Thank You Letter sb4 Prescriptions: - Protonix 40 mg Oral Tablet - take 1 tablet ORAL route once daily; 30 tablet; Refills: 0, Product Selection sb4 Permitted Signatures: Dispatcher [employer] EDMS Yessi Marie, RN RN ll1 Reza Fraser, DO DO ms3 Heaven Sapp PA-C PACeasar sb4 Allison Arreola RN RN jp5 Corrections: (The following items were deleted from the chart) 09:21 09:21 Chest Single View+[id number] ordered. EDMS EDMS
--- NOTE | 2025-03-27 11:19 | ER ---
Nurse's Notes [facility] Name: Frida Mensah Age: 24 yrs Sex: Female : 2000 Arrival Date: 03/27/2025 Time: 09:12 Bed 7 Private MD: Diagnosis: Chest pain, unspecified;Palpitations Presentation: 03/27 09:22 Coronavirus screen: Client denies travel out of the [place] in the last 14 days. At this ll1 time, the client does not indicate any symptoms associated with coronavirus-19. Ebola Screen: Patient denies travel to an Ebola-affected area in the 21 days before illness onset. Initial Sepsis Screen: Does the patient meet any 2 criteria? No. Patient's initial sepsis screen is negative. Does the patient have a suspected source of infection? No. Patient's initial sepsis screen is negative. Risk Assessment: Do you want to hurt yourself or someone else? Patient reports no desire to harm self or others. Onset of symptoms was March 26, 2025. 09:22 Method Of Arrival: Ambulatory 1 09:22 Acuity: ARTIE 3 1 09:30 Chief complaint: Patient states: Fast heart rate and chest burning feeling since last ll1 night. Historical: - Allergies: 09:22 No Known Allergies; ll1 - PMHx: 09:22 None; ll1 - PSHx: :22 None; ll1 - Immunization history:: Adult Immunizations up to date. - Infectious Disease History:: Denies. - Social history:: Smoking status: Patient denies any tobacco usage or history of. Screenin:51 [facility] ED Fall Risk Assessment (Adult) History of falling in the last 3 months, jp5 including since admission No falls in past 3 months (0 pts) Confusion or Disorientation No (0 pts) Intoxicated or Sedated No (0 pts) Impaired Gait No (0 pts) Mobility Assist Device Used No (0 pt) Altered Elimination No (0 pt) Score/Fall Risk Level 0 - 2 = Low Risk. Abuse screen: Denies threats or abuse. Denies injuries from another. Nutritional screening: No deficits noted. Tuberculosis screening: No symptoms or risk factors identified. Never had TB. Possible symptoms: None Risk factors: None. Assessment: 09:30 Cardiovascular: No deficits noted. Reports chest pain, Denies nausea, shortness of jp5 breath, vomiting, Rhythm is regular. Respiratory: No deficits noted. 09:49 Pain: Complains of pain in chest Pain does not radiate. Quality of pain is described as jp5 burning, Pain began 1 day ago. 10:45 Reassessment: Patient appears in no apparent distress at this time. Patient and/or hb family updated on plan of care and expected duration. Pain level reassessed. Patient is alert, oriented x 3, equal unlabored respirations, skin warm/dry/pink. Vital Signs: 09:22 BP 123 / 89; Pulse 91; Resp 17; Temp 97.3; Pulse Ox 99% ; Weight 73.03 kg; Height 5 ft. ll1 6 in. ; Pain 6/10; 10:08 BP 110 / 78; Pulse 95; Resp 15; Pulse Ox 100% on R/A; hb 09:22 Body Mass Index 25.99 (73.03 kg, 167.64 cm) ll1 09:22 Pain Scale: Adult ll1 ED Course: 09:15 Patient arrived in ED. al6 09:15 Heaven Sapp PA-C is PHCP. sb4 09:15 Reza Fraser DO is Attending Physician. sb4 09:16 Arm band placed on Patient placed in an exam room, on a stretcher. ll1 09:23 Triage completed. ll1 09:28 EKG done, by ED staff, reviewed by Reza Fraser DO. jp5 09:30 Inserted saline lock: 20 gauge in right antecubital area, using aseptic technique. jp5 Blood collected. Flushed with 10 mL NS. 09:33 Basic Metabolic Panel Sent. jp5 09:33 CBC with Diff Sent. jp5 09:33 LFT's Sent. jp5 09:33 Magnesium Sent. jp5 09:33 Troponin HS Sent. jp5 09:33 PT-INR Sent. jp5 09:33 NT PRO-BNP Sent. jp5 09:35 Patient has correct armband on for positive identification. Bed in low position. Call jp5 light in reach. Side rails up X 1. Provided Education on:. Client placed on continuous cardiac and pulse oximetry monitoring. NIBP monitoring applied. 09:45 Patient maintains SpO2 saturation greater than 95% on room air. hb 10:07 XRAY Chest (1 view) In Process Unspecified. EDMS 11:18 Hubert Anthony MD is Referral Physician. sb4 11:44 No provider procedures requiring assistance completed. IV discontinued, intact, hb bleeding controlled, No redness/swelling at site. Pressure dressing applied. Administered Medications: 09:34 Drug: NS 0.9% IV 1000 ml IV at 1000 ml once; to be given as a bolus over 60 minutes jp5 Route: IV; Rate: 1000 ml; Site: right antecubital; 09:34 Drug: Famotidine IVP 20 mg IVP once; dilute with 10 mL 0.9% NaCl; give over 2 minutes jp5 Route: IVP; Site: right antecubital; 09:34 Drug: Ketorolac IVP 15 mg IVP once Route: IVP; Site: right antecubital; jp5 Medication: 09:51 VIS not applicable for this client. jp5 Outcome: 11:19 Discharge ordered by MD. sb4 11:44 Discharged to home ambulatory, with significant other, hb 11:44 Condition: stable 11:44 Discharge instructions given to patient, significant other, Instructed on discharge instructions, follow up and referral plans. medication usage, Demonstrated understanding of instructions, follow-up care, medications, Prescriptions given X 1, 11:44 Patient left the ED. hb Signatures: Dispatcher [employer] EDCT Ca Monaco RN EMIGDIO hb Yessi Marie RN RN ll1 Heaven Sapp, PA-C PA-C sb4 Allison Arreola RN RN jp5 Fatemeh Vergara al6
[2025-03-27 13:51] VITALS: TEMP 97.3
[2025-03-27 13:57] VITALS: BP 110/78; O2SAT 100
[2025-03-27 18:13] LABS: NT PRO-BNP 39 pg/mL (<125)
== END 2025-03-27 11:44 | disposition home or self-care (01) ==
LOC: ER 09:12
DX: R07.89 Other chest pain (principal); R00.2 Palpitations
CPT/HCPCS: 85025; 80048; 36415; 83735; 84703; 85610; 80076; 84484; 83880; 71045; J7030; 93005